=== PATIENT | female | born 1955 | race Caucasian/White ===

== ENCOUNTER → 2020-01-31 | Outpatient (CLI) | payer BC ==
--- NOTE | 2020-01-31 09:48 | Diagnostic Imaging Report ---
EXAM: BONE MINERAL DENSITY HISTORY: Screening COMPARISON: None DISCUSSION: Evaluation of the left hip and lumbar spine was performed utilizing DEXA Hologic bone densitometer. The study is technically adequate. The patient's fracture risk is compared to an age-matched control. The patient denies prior surgery/fracture of the spine, hips or forearm. Left hip femoral neck bone mineral density: 0.707 g/cm2, T-score is -1.3, Z-score is 0.2. Left hip total bone mineral density: 0.788 g/cm2, T-score is -1.3, Z-score is -0.1. Lumbar spine total bone mineral density: 1.067 gm/cm2, T-score is 0.2, Z-score is 1.9. Impression: Bone mineralization by WHO Classification is osteopenia, the fracture risk is increased. The calculated 10 year risk of a major osteoporotic fracture is 7.4%. Signed by: Loc Garza MD on 01/31/2020 9:44 AM
== END ==
LOC: MAMMO 08:42
PROVIDERS: ATTEND Family Medicine
DX: Z12.31 Encounter for screening mammogram for malignant neoplasm of breast (principal); Z13.820 Encounter for screening for osteoporosis
CPT/HCPCS: 77067; 77080

== ENCOUNTER → 2020-02-24 | Outpatient (CLI) | payer BC | LOC: MAMMO 09:36 | PROVIDERS: ATTEND Family Medicine | DX: N64.89 Other specified disorders of breast (principal) ==